=== PATIENT | male | born 1960 | race American Indian/Alaskan Native ===

== ENCOUNTER 2019-01-12 23:06 | Observation (INO) | payer MEDICAID ==
[2019-01-12 23:52] LABS: Eosinophils # (Auto) 0.2 K/mm3 (0.0-0.4); Eosinophils % (Auto) 3.1 % (0.0-4.3); Monocytes # (Auto) 0.8 K/mm3 (0.0-0.8); Monocytes % (Auto) 14.3 % (0.0-7.3)
--- NOTE | 2019-01-12 23:59 | XRay Report ---
PROCEDURE: XR CHEST ROUTINE 2V TECHNIQUE: PA and lateral chest radiographs were obtained. HISTORY: Chest Pain COMPARISONS: None. FINDINGS: Heart: Normal. Mediastinum/Vessels: Normal. Lungs/Pleural space: The lungs are expanded. There are no infiltrates, effusions or pneumothoraces.. Bony thorax: No acute osseous abnormality. There is hypertrophy of the left sternoclavicular joint. The IMPRESSION: There is no acute cardiopulmonary abnormality.. This document is electronically signed by Antoine Hunt MD., January 13 2019 12:57:01 AM ET
[2019-01-13 00:03] LABS: Basophils % (Auto) 0.5 % (0.0-1.8); Hematocrit 41.4 % (35.5-45.6); Lymphocytes # (Auto) 1.8 K/mm3 (1.2-5.4); Lymphocytes % (Auto) 32.9 % (13.4-35.0); Mean Corpuscular HGB Conc 34 % (32-34); Mean Corpuscular Volume 91 fl (84-94); Red Blood Count 4.53 M/mm3 (3.65-5.03); Red Cell Distribution Width 14.1 % (13.2-15.2)
[2019-01-13 00:13] LABS: BUN/Creatinine Ratio 15; Blood Urea Nitrogen 17 mg/dL (9-20); Calcium 8.7 mg/dL (8.4-10.2)
[2019-01-13 00:14] LABS: Hemolysis Index 4
[2019-01-13] MEDS ORDERED: ASPIRIN PO ONE (01:31)
--- NOTE | 2019-01-13 01:58 | Emergency Department Report ---
ED Chest Pain HPI - General Chief Complaint: Chest Pain Stated Complaint: CHEST PAINS Time Seen by Provider: 01/13/19 01:18 Source: patient, old records reviewed (no previous med record for review) Mode of arrival: Ambulatory Limitations: No Limitations - History of Present Illness Initial Comments: 58-year-old male with a past medical history of hypertension presents to Hospital complaining of left-sided chest pain 1 day and dry cough 2 days. Patient complains of intermittent left-sided chest pain described as a pressure. No aggravating or alleviating factors reported. Patient denies associated symptoms including fever, nausea, vomiting, shortness breath, diaphoresis, calf tenderness, leg edema. He denies previous travel, history of PE, history of DVT, family history of CAD, or smoking. He states his last stress test was greater than 5 years ago. He has been compliant with his blood pressure medication and does not take an aspirin daily. He is currently homeless. He also complains of soreness to his feet. Severity scale (0 -10): 0 - Related Data Allergies Allergy/AdvReac Type Severity Reaction Status Date / Time No Known Allergies Allergy Verified 01/12/19 23:10 Heart Score - HEART Score History: Slightly suspicious EKG: Non-specific Age: 45-65 Risk factors: 1-2 risk factors Troponin: < normal limit HEART Score: 3 ED Review of Systems ROS: Stated complaint: CHEST PAINS Other details as noted in HPI Comment: All other systems reviewed and negative ED Past Medical Hx - Past Medical History Previous Medical History?: Yes Hx Hypertension: Yes - Surgical History Past Surgical History?: No - Social History Smoking Status: Never Smoker Substance Use Type: None ED Physical Exam - General Limitations: No Limitations - Other Other exam information: General: No limitations, patient is alert in no acute distress Head exam: Atraumatic, normocephalic Eyes exam: Normal appearance ENT: Moist mucous membrane, Neck exam: Normal inspection, full range of motion, no meningismus nontender Respiratory exam: Clear to auscultation bilateral, no wheezes, rales, crackles Cardiovascular: Normal rate and rhythm, normal heart sounds, chest wall nontender Abdomen: Soft, nondistended, and nontender, with normal bowel sounds, no rebound, or guarding Extremity: Full range of motion normal inspection no deformity Back: Normal Inspection, full range of motion, no tenderness Neurologic: Alert, oriented x3, cranial nerves intact, no motor or sensory deficit Psychiatric: normal affect, normal mood Skin: Patient has a tinea/fungal infection noted between the toes of his bilateral feet. No ulcers, erythema, or want. ED Course Vital Signs 01/12/19 01/12/19 01/13/19 23:11 23:13 01:06 Temperature 97.4 F L 97.4 F L Pulse Rate 68 70 63 Respiratory 18 18 20 Rate Blood Pressure 165/111 Blood Pressure 165/111 [Left] O2 Sat by Pulse 97 98 98 Oximetry 01/13/19 01/13/19 01/13/19 01:09 01:16 01:30 Temperature 97.7 F Pulse Rate 64 80 Respiratory 20 26 H Rate Blood Pressure 156/101 156/101 Blood Pressure 156/101 [Left] O2 Sat by Pulse 97 98 98 Oximetry 01/13/19 01/13/19 01/13/19 01:46 02:01 02:15 Temperature Pulse Rate 55 L 54 L 56 L Respiratory 17 14 16 Rate Blood Pressure 148/99 143/92 148/99 Blood Pressure [Left] O2 Sat by Pulse 98 96 95 Oximetry 01/13/19 02:31 Temperature Pulse Rate 54 L Respiratory 12 Rate Blood Pressure 148/99 Blood Pressure [Left] O2 Sat by Pulse 99 Oximetry ZHANNA score - Zhanna Score Age > 65: (0) No Aspirin use within the Past 7 Days: (0) No 3 or more CAD Risk Factors: (0) No 2 or more Angina events in past 24 hrs: (1) Yes Known CAD with more than 50% Stenosis: (0) No Elevated Cardiac Markers: (0) No ST Deviation Greater than 0.5mm: (0) No ZHANNA Score: 1 ED Medical Decision Making - Lab Data Result diagrams: 01/12/19 23:18 01/12/19 23:18 Lab Results 01/12/19 01/12/19 Range/Units 23:18 23:18 WBC 5.5 (4.5-11.0) K/mm3 RBC 4.53 (3.65-5.03) M/mm3 Hgb 14.0 (11.8-15.2) gm/dl Hct 41.4 (35.5-45.6) % MCV 91 (84-94) fl MCH 31 (28-32) pg MCHC 34 (32-34) % RDW 14.1 (13.2-15.2) % Lymph % (Auto) 32.9 (13.4-35.0) % [place] % (Auto) 14.3 H (0.0-7.3) % Eos % (Auto) 3.1 (0.0-4.3) % Baso % (Auto) 0.5 (0.0-1.8) % Lymph # 1.8 (1.2-5.4) K/mm3 [place] # 0.8 (0.0-0.8) K/mm3 Eos # 0.2 (0.0-0.4) K/mm3 Baso # 0.0 (0.0-0.1) K/mm3 Seg Neutrophils % 49.5 (40.0-70.0) % Seg Neutrophils # 2.7 (1.8-7.7) K/mm3 Sodium 145 (137-145) mmol/L Potassium 3.7 (3.6-5.0) mmol/L Chloride 106.0 (98-107) mmol/L Carbon Dioxide 28 (22-30) mmol/L Anion Gap 15 mmol/L BUN 17 (9-20) mg/dL Creatinine 1.1 (0.8-1.5) mg/dL Estimated GFR > 60 ml/min BUN/Creatinine Ratio 15 % Glucose 80 (75-100) mg/dL Calcium 8.7 (8.4-10.2) mg/dL Troponin T 0.013 (0.00-0.029) ng/mL Platelet count pending - EKG Data -: EKG Interpreted by [place] EKG shows normal: sinus rhythm - Radiology Data Radiology results: report reviewed PROCEDURE: XR CHEST ROUTINE 2V TECHNIQUE: PA and lateral chest radiographs were obtained. HISTORY: Chest Pain COMPARISONS: None. FINDINGS: Heart: Normal. Mediastinum/Vessels: Normal. Lungs/Pleural space: The lungs are expanded. There are no infiltrates, effusions or pneumothoraces.. Bony thorax: No acute osseous abnormality. There is hypertrophy of the left sternoclavicular joint. The IMPRESSION: There is no acute cardiopulmonary abnormality.. - Medical Decision Making cp, no stemi, initial trop neg. No signs of ST elevation NE. Patient will be admitted for further cardiac workup. plt count 68 - Differential Diagnosis NE, atypical chest pain, PE, costochondritis, pneumonia Critical Care Time: No Critical care attestation.: If time is entered above; I have spent that time in minutes in the direct care of this critically ill patient, excluding procedure time. ED Disposition Clinical Impression: Chest pain, HTN (hypertension), Athletes foot, Thrombocytopenia Disposition: OP ADMIT IP TO THIS HOSP Is pt being admited?: Yes Does the pt Need Aspirin: Yes Condition: Stable Time of Disposition: 01:56 (Dr. Olivre/hospitalist)
[2019-01-13] MEDS ORDERED: NITROSTAT SL PRN (02:40)
[2019-01-13] MEDS ORDERED: SODIUM CHLORIDE FLUSH SYRINGE 10 ML IV PRN ×2 (02:40)
[2019-01-13] MEDS ORDERED: TYLENOL PO PRN (02:40)
[2019-01-13] MEDS ORDERED: MORPHINE IV PRN ×2 (02:40→05:28)
[2019-01-13] MEDS ORDERED: ZOFRAN IV PRN (02:40)
--- NOTE | 2019-01-13 02:40 | History and Physical Report ---
<DIANE VALENCIA - Last Filed: 01/13/19 04:06> History of Present Illness Date of examination: 01/13/19 Date of admission: 09/19/2018 Chief complaint: Chest pain x1 day History of present illness: Pt is a 58-year-old male with a PMHx of hypertension (takes amlodipine) who presents to ER with complaining of chest pain 1 day. Patient states that the pain is an intermittent pressure-like, located in the left substernal area with no radiation. Pt reports a non-productive cough for the past 2 days but denies SOB, denies pain in the chest wall with palpation, denies palpitation, denies pain with coughing, denies diaphoresis, denies nausea, denies vomiting. Pt states that he had similar chest pain and was seen in the ER for similar chest pain, his last stress test was 5 year ago. Pt states that he is homeless, he has been out of amlodipine for a while. In the ER, pt had an abnormal EKG with multiple PVCs, nonspecific T abnormalities and prolonged QT interval showed, no STEMI, first CE is negative, patient is admitted for further evaluation of this chest pain. Past History Past Medical History: hypertension Social history: other (drink alcohol occasional) Family history: no significant family history Medications and Allergies Allergies Allergy/AdvReac Type Severity Reaction Status Date / Time No Known Allergies Allergy Verified 01/12/19 23:10 Home Medications Medication Instructions Recorded Confirmed Last Taken Type amLODIPine [Norvasc] 10 mg PO DAILY 01/13/19 01/13/19 Unknown History Active Meds: Active Medications Clotrimazole (Lotrimin) 1 applic TP BID [facility] Review of Systems Cardiovascular: chest pain Respiratory: cough Musculoskeletal: other (lower extremities edema) Exam - Constitutional Vitals: Temp Pulse Resp BP Pulse Ox 97.7 F 54 L 12 148/99 99 01/13/19 01:09 01/13/19 02:31 01/13/19 02:31 01/13/19 02:31 01/13/19 02:31 General appearance: Present: no acute distress - EENT Eyes: Present: EOM intact ENT: hearing intact - Neck Neck: Present: supple - Respiratory Respiratory effort: normal Respiratory: bilateral: CTA - Cardiovascular Rhythm: regular - Extremities Extremities: no ischemia Extremity abnormal: edema (bilateral lower extremities) Peripheral Pulses: within normal limits - Abdominal General gastrointestinal: Present: non-tender, non-distended Male genitourinary: Present: deferred - Rectal Rectal Exam: deferred - Integumentary Integumentary: Present: warm, dry - Musculoskeletal Musculoskeletal: strength equal bilaterally - Psychiatric Psychiatric: cooperative - Neurologic Neurologic: moves all extremities Results - Labs CBC & Chem 7: 01/13/19 02:56 01/12/19 23:18 Labs: Laboratory Last Values WBC 5.5 K/mm3 (4.5-11.0) 01/12/19 23:18 RBC 4.53 M/mm3 (3.65-5.03) 01/12/19 23:18 Hgb 14.0 gm/dl (11.8-15.2) 01/12/19 23:18 Hct 41.4 % (35.5-45.6) 01/12/19 23:18 MCV 91 fl (84-94) 01/12/19 23:18 MCH 31 pg (28-32) 01/12/19 23:18 MCHC 34 % (32-34) 01/12/19 23:18 RDW 14.1 % (13.2-15.2) 01/12/19 23:18 Lymph % (Auto) 32.9 % (13.4-35.0) 01/12/19 23:18 [place] % (Auto) 14.3 % (0.0-7.3) H 01/12/19 23:18 Eos % (Auto) 3.1 % (0.0-4.3) 01/12/19 23:18 Baso % (Auto) 0.5 % (0.0-1.8) 01/12/19 23:18 Lymph # 1.8 K/mm3 (1.2-5.4) 01/12/19 23:18 [place] # 0.8 K/mm3 (0.0-0.8) 01/12/19 23:18 Eos # 0.2 K/mm3 (0.0-0.4) 01/12/19 23:18 Baso # 0.0 K/mm3 (0.0-0.1) 01/12/19 23:18 Seg Neutrophils % 49.5 % (40.0-70.0) 01/12/19 23:18 Seg Neutrophils # 2.7 K/mm3 (1.8-7.7) 01/12/19 23:18 Sodium 145 mmol/L (137-145) 01/12/19 23:18 Potassium 3.7 mmol/L (3.6-5.0) 01/12/19 23:18 Chloride 106.0 mmol/L (98-107) 01/12/19 23:18 Carbon Dioxide 28 mmol/L (22-30) 01/12/19 23:18 15 mmol/L 01/12/19 23:18 BUN 17 mg/dL (9-20) 01/12/19 23:18 1.1 mg/dL (0.8-1.5) 01/12/19 23:18 Estimated GFR > 60 ml/min 01/12/19 23:18 15 % 01/12/19 23:18 Glucose 80 mg/dL (75-100) 01/12/19 23:18 Calcium 8.7 mg/dL (8.4-10.2) 01/12/19 23:18 0.013 ng/mL (0.00-0.029) 01/12/19 23:18 Assessment and Plan Assessment and plan: 1. Chest pain (rule/out ACS) 2. Hypertension 3. Chronic lower extremity swelling Plan: Patient is admitted for chest pain Cardiac enzymes every 6 hours 2 more If CE elevated, consult cardiology Monitor blood pressure Stress test in the a.m. Cardiac diet Resume home meds Add Aspirin 325 PO daily, Metoprolol 25 PO BID Advance Directives: Yes VTE prophylaxis?: Chemical Plan of care discussed with patient/family: Yes <SHENG MERRITT - Last Filed: 01/13/19 05:29> History of Present Illness Date of admission: 01/13/19 03:01 Medications and Allergies Active Meds: Active Medications Acetaminophen (Tylenol) 650 mg PO Q4H PRN PRN Reason: Pain MILD(1-3)/Fever >100.5/CHACON Amlodipine Besylate (Norvasc) 5 mg PO QDAY STEVEN Aspirin (Ecotrin) 325 mg PO QDAY STEVEN Clotrimazole (Lotrimin) 1 applic TP BID STEVEN Hydralazine HCl (Apresoline) 20 mg IV Q4H PRN PRN Reason: Hypertension Metoprolol Tartrate (Lopressor) 25 mg PO BID STEVEN Morphine Sulfate (Morphine) 2 mg IV Q4H PRN PRN Reason: Chest Pain unrelieved by NTG Nitroglycerin (Nitrostat) 0.4 mg SL Q5M PRN PRN Reason: Chest Pain Ondansetron HCl (Zofran) 4 mg IV Q8H PRN PRN Reason: Nausea And Vomiting Sodium Chloride (Sodium Chloride Flush Syringe 10 Ml) 10 ml IV BID STEVEN Sodium Chloride (Sodium Chloride Flush Syringe 10 Ml) 10 ml IV PRN PRN PRN Reason: LINE FLUSH Sodium Chloride (Sodium Chloride Flush Syringe 10 Ml) 10 ml IV PRN PRN PRN Reason: LINE FLUSH Exam - Constitutional Vitals: Temp Pulse Resp BP Pulse Ox 97.6 F 66 18 163/103 99 01/13/19 04:37 01/13/19 04:37 01/13/19 04:37 01/13/19 04:37 01/13/19 02:31 Results - Labs CBC & Chem 7: 01/13/19 02:56 01/13/19 02:56 Labs: Laboratory Last Values WBC 5.2 K/mm3 (4.5-11.0) 01/13/19 02:56 RBC 4.67 M/mm3 (3.65-5.03) 01/13/19 02:56 Hgb 14.4 gm/dl (11.8-15.2) 01/13/19 02:56 Hct 43.9 % (35.5-45.6) 01/13/19 02:56 MCV 94 fl (84-94) 01/13/19 02:56 MCH 31 pg (28-32) 01/13/19 02:56 MCHC 33 % (32-34) 01/13/19 02:56 RDW 14.5 % (13.2-15.2) 01/13/19 02:56 Plt Count 68 K/mm3 (140-440) L 01/13/19 02:56 Lymph % (Auto) [place] 01/13/19 02:56 [place] % (Auto) Tentmaker 01/13/19 02:56 Eos % (Auto) [place]entmaker 01/13/19 02:56 Baso % (Auto) Tentmaker 01/13/19 02:56 Lymph # Tentmaker 01/13/19 02:56 [place] # Tentmaker 01/13/19 02:56 Eos # Tentmaker 01/13/19 02:56 Baso # Tentmaker 01/13/19 02:56 Seg Neutrophils % Tentmaker 01/13/19 02:56 Seg Neutrophils # Tentmaker 01/13/19 02:56 Sodium 139 mmol/L (137-145) 01/13/19 02:56 Potassium 4.0 mmol/L (3.6-5.0) 01/13/19 02:56 Chloride 106.5 mmol/L (98-107) 01/13/19 02:56 Carbon Dioxide 24 mmol/L (22-30) 01/13/19 02:56 13 mmol/L 01/13/19 02:56 BUN 17 mg/dL (9-20) 01/13/19 02:56 0.7 mg/dL (0.8-1.5) L 01/13/19 02:56 Estimated GFR > 60 ml/min 01/13/19 02:56 24 % 01/13/19 02:56 Glucose 100 mg/dL (75-100) 01/13/19 02:56 Calcium 8.6 mg/dL (8.4-10.2) 01/13/19 02:56 0.013 ng/mL (0.00-0.029) 01/12/19 23:18 Triglycerides 79 mg/dL (2-149) 01/13/19 02:56 Cholesterol 151 mg/dL (50-199) 01/13/19 02:56 99 mg/dL (50-130) 01/13/19 02:56 47 mg/dL (40-59) 01/13/19 02:56 3.21 % 01/13/19 02:56 Assessment and Plan Assessment and plan: Patient seen and examined, case discussed with nurse practitioner. 58-year-old male with a history of hypertension comes emergency room with complaints of chest pain, left chest which she describes a pressure-like sensation, intermittent every 5 minutes. Physical exam is benign,agree with stress test
[2019-01-13 03:04] LABS: Platelet Count 68 K/mm3 (140-440)
[2019-01-13 03:25] LABS: Hematocrit 43.9 % (35.5-45.6); Hemoglobin 14.4 gm/dl (11.8-15.2); Mean Corpuscular HGB Conc 33 % (32-34); Mean Corpuscular Volume 94 fl (84-94); Red Blood Count 4.67 M/mm3 (3.65-5.03); Red Cell Distribution Width 14.5 % (13.2-15.2)
[2019-01-13 04:13] LABS: Platelet Count 68 K/mm3 (140-440)
[2019-01-13 04:15] LABS: BUN/Creatinine Ratio 24; Blood Urea Nitrogen 17 mg/dL (9-20); Calcium 8.6 mg/dL (8.4-10.2); Hemolysis Index 42
[2019-01-13] MEDS ORDERED: APRESOLINE IV PRN (04:55)
[2019-01-13 04:59] LABS: Chol/HDL Ratio 3.21 %
[2019-01-13] MEDS: SODIUM CHLORIDE FLUSH SYRINGE 10 ML IV SCH (09:43)
[2019-01-13] MEDS: LOPRESSOR PO SCH ×2 (09:43→22:14)
[2019-01-13] MEDS: LOTRIMIN TP SCH ×2 (09:45→22:19)
[2019-01-13] MEDS ORDERED: NORVASC PO SCH (10:00)
--- NOTE | 2019-01-13 10:50 | Progress Note ---
Assessment and Plan Assessment and plan: Chest pain. Continue chest pain pathway. Patient is scheduled for stress thallium in a.m. Continue to monitor serial isoenzymes. Hypertension. Resume antihypertensive medications. Medical noncompliance. Patient will be counseled. Chronic lower extremity swelling. Check lower extremity Dopplers. Homelessness. Case management evaluation in the morning. History Interval history: Pt is a 58-year-old male with a PMHx of hypertension (takes amlodipine) who presents to ER with complaining of chest pain 1 day [employer]. In the ER, pt had an abnormal EKG with multiple PVCs, nonspecific T abnormalities and prolonged QT interval, no STEMI, CE were negative, patient was admitted for further evaluation of this chest pain. Hospitalist Physical - Constitutional Vitals: Temp Pulse Resp BP Pulse Ox 98.1 F 82 16 182/115 96 01/13/19 08:27 01/13/19 08:27 01/13/19 08:27 01/13/19 08:27 01/13/19 08:27 General appearance: Present: no acute distress - EENT Eyes: Present: PERRL, EOM intact ENT: hearing intact, clear oral mucosa, dentition normal - Neck Neck: Present: supple, normal ROM - Respiratory Respiratory effort: normal Respiratory: bilateral: CTA - Cardiovascular Rhythm: regular Heart Sounds: Present: S1 & S2. Absent: gallop, rub - Extremities Extremities: no ischemia, No edema, Full ROM - Abdominal General gastrointestinal: soft, non-tender, non-distended, normal bowel sounds - Integumentary Integumentary: Present: clear, warm, dry - Neurologic Neurologic: CNII-XII intact, moves all extremities Results - Labs CBC & Chem 7: 01/13/19 02:56 01/13/19 02:56 Labs: Laboratory Last Values WBC 5.2 K/mm3 (4.5-11.0) 01/13/19 02:56 RBC 4.67 M/mm3 (3.65-5.03) 01/13/19 02:56 Hgb 14.4 gm/dl (11.8-15.2) 01/13/19 02:56 Hct 43.9 % (35.5-45.6) 01/13/19 02:56 MCV 94 fl (84-94) 01/13/19 02:56 MCH 31 pg (28-32) 01/13/19 02:56 MCHC 33 % (32-34) 01/13/19 02:56 RDW 14.5 % (13.2-15.2) 01/13/19 02:56 Plt Count 68 K/mm3 (140-440) L 01/13/19 02:56 Lymph % (Auto) Mud Mixer 01/13/19 02:56 [place] % (Auto) Mud Mixer 01/13/19 02:56 Eos % (Auto) Mud Mixer 01/13/19 02:56 Baso % (Auto) Mud Mixer 01/13/19 02:56 Lymph # Mud Mixer 01/13/19 02:56 [place] # Mud Mixer 01/13/19 02:56 Eos # Mud Mixer 01/13/19 02:56 Baso # Mud Mixer 01/13/19 02:56 Seg Neutrophils % Mud Mixer 01/13/19 02:56 Seg Neutrophils # Mud Mixer 01/13/19 02:56 Sodium 139 mmol/L (137-145) 01/13/19 02:56 Potassium 4.0 mmol/L (3.6-5.0) 01/13/19 02:56 Chloride 106.5 mmol/L (98-107) 01/13/19 02:56 Carbon Dioxide 24 mmol/L (22-30) 01/13/19 02:56 13 mmol/L 01/13/19 02:56 BUN 17 mg/dL (9-20) 01/13/19 02:56 0.7 mg/dL (0.8-1.5) L 01/13/19 02:56 Estimated GFR > 60 ml/min 01/13/19 02:56 24 % 01/13/19 02:56 Glucose 100 mg/dL (75-100) 01/13/19 02:56 Calcium 8.6 mg/dL (8.4-10.2) 01/13/19 02:56 0.013 ng/mL (0.00-0.029) 01/12/19 23:18 Triglycerides 79 mg/dL (2-149) 01/13/19 02:56 Cholesterol 151 mg/dL (50-199) 01/13/19 02:56 99 mg/dL (50-130) 01/13/19 02:56 47 mg/dL (40-59) 01/13/19 02:56 3.21 % 01/13/19 02:56 Active Medications - Current Medications Current Medications: Generic Name Dose Route Start Last Admin Trade Name Freq PRN Reason Stop Dose Admin Acetaminophen 650 mg 01/13/19 02:40 Tylenol PO Q4H PRN Pain MILD(1-3)/Fever >100.5/CHACON Amlodipine Besylate 5 mg 01/13/19 10:00 01/13/19 09:43 Norvasc PO 5 mg QDAY STEVEN Administration Aspirin 325 mg 01/14/19 10:00 Ecotrin PO QDAY STEVEN Clotrimazole 1 applic 01/13/19 10:00 01/13/19 09:45 Lotrimin TP 1 applic BID STEVEN Administration Hydralazine HCl 20 mg 01/13/19 04:55 01/13/19 05:48 Apresoline IV 20 mg Q4H PRN Administration Hypertension Metoprolol Tartrate 25 mg 01/13/19 10:00 01/13/19 09:43 Lopressor PO 25 mg BID STEVEN Administration Morphine Sulfate 2 mg 01/13/19 05:28 Morphine IV Q4H PRN Chest Pain unrelieved by NTG Nitroglycerin 0.4 mg 01/13/19 02:40 Nitrostat SL Q5M PRN Chest Pain Ondansetron HCl 4 mg 01/13/19 02:40 Zofran IV Q8H PRN Nausea And Vomiting Sodium Chloride 10 ml 01/13/19 10:00 01/13/19 09:43 Sodium Chloride Flush Syringe 10 Ml IV 10 ml BID STEVEN Administration Sodium Chloride 10 ml 01/13/19 02:40 Sodium Chloride Flush Syringe 10 Ml IV PRN PRN LINE FLUSH
--- NOTE | 2019-01-13 13:46 | Vascular Lab Report ---
PROCEDURE: VL VENOUS DUPLEX LE BILAT TECHNIQUE: Grayscale and color and spectral doppler ultrasound imaging of the extremity venous syste m was performed. HISTORY: swelling COMPARISONS: None. FINDINGS: There is normal compression and color flow within the bilateral lower extremity venous systems. Mulu l augmentation was seen. Focal soft tissue edema is seen adjacent to the knees. IMPRESSION: No evidence of deep venous thrombosis. This document is electronically signed by Silva Horne., January 13 2019 02:44:16 PM ET
[2019-01-14] MEDS: SODIUM CHLORIDE FLUSH SYRINGE 10 ML IV SCH (01:19)
[2019-01-14 08:38] VITALS: BP 168/96
[2019-01-14] MEDS ORDERED: ECOTRIN PO SCH (10:00)
--- NOTE | 2019-01-14 10:02 | Discharge Summary ---
Providers - Providers Date of Admission: 01/13/19 03:01 Date of discharge: 01/14/19 Attending physician: VON LAWRENCE 01/13/19 Consult to Cardiac Rehabilitation [CONS] Routine Reason For Exam: Phase I 01/14/19 07:34 Consult to Physician [CONS] Routine Comment: Consulting Provider: RASHID COSME Physician Instructions: Reason For Exam: cp Primary care physician: TILE MOLDER Hospitalization Reason for admission: cp Condition: Stable Hospital course: Pt is a 58-year-old male with a PMHx of hypertension (takes amlodipine) who presents to ER with complaining of chest pain 1 day [employer]. In the ER, pt had an abnormal EKG with multiple PVCs, nonspecific T abnormalities and prolonged QT interval, no STEMI, CE were negative, patient was admitted for further evaluation of this chest pain. The patient was to undergo a stress test but refused the examination. Cardiology was consulted. However, patient signed out AMA. Dedicated discharge time 32 minutes. Disposition: DC-07 LEFT AGAINST MED ADVICE Time spent for discharge: 32 - Discharge Diagnoses (1) Chest pain Status: Acute Core Measure Documentation - Palliative Care Palliative Care/ Comfort Measures: Not Applicable - Core Measures Any of the following diagnoses?: none Exam - Constitutional Vitals: Temp Pulse Resp BP Pulse Ox 98.1 F 58 L 18 168/96 93 01/14/19 08:15 01/14/19 08:15 01/14/19 08:15 01/14/19 08:15 01/14/19 08:15 Plan Follow up with: SARA LYONS MD [Primary Care Provider] - 7 Days
== END 2019-01-14 09:43 | disposition left against medical advice (07) ==
LOC: ED 23:06 → 4A 01-13 03:01
PROVIDERS: ADMIT Internal Medicine; ATTEND Hospitalist
DX: R07.89 Other chest pain (principal); I10 Essential (primary) hypertension; M79.89 Other specified soft tissue disorders; Z79.899 Other long term (current) drug therapy; Z79.82 Long term (current) use of aspirin
CPT/HCPCS: 36415; 71046; 80048; 80061; 84484; 85025; 93005; 93010; 93970; 96374; 99284; G0378; J0360

== ENCOUNTER 2019-02-02 22:32 | Inpatient (IN) | payer MEDICAID ==
[2019-02-02 23:06] LABS: Hematocrit 42.1 % (35.5-45.6); Hemoglobin 14.2 gm/dl (11.8-15.2); Mean Corpuscular HGB Conc 34 % (32-34); Mean Corpuscular Volume 92 fl (84-94); Red Cell Distribution Width 14.2 % (13.2-15.2)
[2019-02-02 23:29] LABS: BUN/Creatinine Ratio 18; Blood Urea Nitrogen 16 mg/dL (9-20); Hemolysis Index 4
--- NOTE | 2019-02-02 23:44 | XRay Report ---
PROCEDURE: XR CHEST 1V AP TECHNIQUE: Chest radiograph single view. HISTORY: Chest Pain COMPARISONS: None . FINDINGS: Heart: Normal. Mediastinum/Vessels: Normal. Lungs/Pleural space: Normal. Bony thorax: No acute osseous abnormality. Life support devices: None. IMPRESSION: No acute cardiopulmonary abnormality. This document is electronically signed by Macrina Cortez DO., February 02 2019 11:43:10 PM ET
--- NOTE | 2019-02-02 23:51 | Emergency Department Report ---
ED Chest Pain HPI - General Chief Complaint: Chest Pain Stated Complaint: CP/HAND NUMBNESS/FOOT SORES Time Seen by Provider: 02/02/19 23:32 Source: patient Mode of arrival: Ambulatory Limitations: No Limitations - History of Present Illness Initial Comments: 59-year-old male reports history of hypertension, presents to ED with complaint of chest pain prior to arrival. Patient states he was riding on a chain when he experienced left-sided chest pain, pressure-like, that lasted for a few minutes. Patient states he is currently pain free. Denies shortness of breath, diaphoresis, nausea, vomiting, leg pain. Patient reports chronic swelling to bilateral lower legs that is unchanged. MD Complaint: chest pain -: This evening Onset: during rest Pain Location: left chest Pain Radiation: none Severity: moderate Quality: pressure Consistency: now resolved Improves With: nothing Worsens With: nothing re: denies: nausea, vomting, diaphoresis, dyspnea Other Symptoms: leg swelling Treatments Prior to Arrival: none - Related Data Home Medications Medication Instructions Recorded Confirmed Last Taken amLODIPine [Norvasc] 10 mg PO DAILY 01/13/19 02/03/19 Unknown Allergies Allergy/AdvReac Type Severity Reaction Status Date / Time No Known Allergies Allergy Verified 01/12/19 23:10 Heart Score - HEART Score History: Slightly suspicious EKG: Non-specific Age: 45-65 Risk factors: 1-2 risk factors Troponin: < normal limit HEART Score: 3 ED Review of Systems ROS: Stated complaint: CP/HAND NUMBNESS/FOOT SORES Other details as noted in HPI Comment: All other systems reviewed and negative Constitutional: denies: chills, fever Respiratory: denies: shortness of breath Cardiovascular: chest pain Gastrointestinal: denies: nausea, vomiting ED Past Medical Hx - Past Medical History Previous Medical History?: Yes Hx Hypertension: Yes Hx Congestive Heart Failure: No Hx Diabetes: No Hx Arthritis: Yes Hx Asthma: No Hx COPD: No - Surgical History Past Surgical History?: No - Social History Smoking Status: Former Smoker Substance Use Type: Alcohol - Medications Home Medications: Home Medications Medication Instructions Recorded Confirmed Last Taken Type amLODIPine [Norvasc] 10 mg PO DAILY 01/13/19 02/03/19 Unknown History ED Physical Exam - General Limitations: No Limitations General appearance: alert, in no apparent distress - Head Head exam: Present: atraumatic, normocephalic - Eye Eye exam: Present: normal appearance - ENT ENT exam: Present: mucous membranes moist - Neck Neck exam: Present: normal inspection - Respiratory Respiratory exam: Present: normal lung sounds bilaterally. Absent: respiratory distress - Cardiovascular Cardiovascular Exam: Present: regular rate, normal rhythm - GI/Abdominal GI/Abdominal exam: Present: soft. Absent: distended, tenderness - Extremities Exam Extremities exam: Present: normal inspection, other (pitting edema BLE). Absent: calf tenderness - Neurological Exam Neurological exam: Present: alert, oriented X3 - Psychiatric Psychiatric exam: Present: normal affect, normal mood - Skin Skin exam: Present: warm, dry, intact, normal color. Absent: rash ED Course Vital Signs 02/02/19 02/02/19 02/03/19 22:39 23:47 00:24 Temperature 97.4 F L Pulse Rate 36 L 54 L 53 L Respiratory 18 15 14 Rate Blood Pressure 159/74 Blood Pressure 128/75 126/55 [Right] O2 Sat by Pulse 95 97 95 Oximetry 02/03/19 03:43 Temperature Pulse Rate 56 L Respiratory 18 Rate Blood Pressure Blood Pressure 115/63 [Right] O2 Sat by Pulse 97 Oximetry ZHANNA score - Zhanna Score Age > 65: (0) No Aspirin use within the Past 7 Days: (0) No 3 or more CAD Risk Factors: (0) No 2 or more Angina events in past 24 hrs: (1) Yes Known CAD with more than 50% Stenosis: (0) No Elevated Cardiac Markers: (0) No ST Deviation Greater than 0.5mm: (0) No ZHANNA Score: 1 ED Medical Decision Making - Lab Data Result diagrams: 02/02/19 22:52 02/02/19 22:52 - EKG Data -: EKG Interpreted by [place] EKG shows normal: sinus rhythm - EKG Data Interpretation: other (inferior T wave inversions unchanged, new T wave inversions anetriorly; PACs present) - Radiology Data Radiology results: report reviewed, image reviewed - Medical Decision Making 59 yo M with chest pain, currently resolved. Seen earlier in the month, but left AMA and did not have stress test. Pt has new anterior T wave inversion. Troponin normal. Vitals signs normal. CXR normal. Pt states he is willing to stay this time and will not leave AMA. Will admit to hospitalist to further workup. - Differential Diagnosis ACS, CHF, pneumonia Critical care attestation.: If time is entered above; I have spent that time in minutes in the direct care of this critically ill patient, excluding procedure time. ED Disposition Clinical Impression: Chest pain Disposition: DC-09 OP ADMIT IP TO THIS HOSP Is pt being admited?: Yes Condition: Stable
[2019-02-03] MEDS ORDERED: ASPIRIN PO ONE (00:06)
[2019-02-03] MEDS ORDERED: ZOFRAN IV PRN (00:23)
[2019-02-03] MEDS ORDERED: PERCOCET 5/325 PO PRN (00:23)
[2019-02-03] MEDS ORDERED: TYLENOL PO PRN (00:23)
[2019-02-03] MEDS ORDERED: SODIUM CHLORIDE FLUSH SYRINGE 10 ML IV PRN (00:23)
[2019-02-03] MEDS ORDERED: MORPHINE IV PRN (00:30)
[2019-02-03 00:53] LABS: Anisocytosis 1+; Band Neutrophils # (Manual) 0.1 K/mm3; Basophils % (Manual) 0 % (0.0-1.8); Total Cells Counted 100
[2019-02-03 00:54] LABS: Platelet Count 112 K/mm3 (140-440); Platelet Estimate Consistent w Auto
--- NOTE | 2019-02-03 00:54 | History and Physical Report ---
History of Present Illness Date of examination: 02/03/19 Chief complaint: Chest pain History of present illness: Patient is a 59-year-old -Serbian male with history of hypertension who presented to the ED on account of left-sided chest pain which started 30 minutes prior to arrival. He described it as sharp in character, rated 3/10, non- radiating and constant in duration. No known aggravating or relieving factors. He has associated diaphoresis and lightheadedness. He denies shortness of breath, palpitation, fever, chills, cough, headaches, nausea, vomiting, syncope or loss of consciousness. He has positive bilateral leg swelling but no orthopnea or PND. Of note, patient stated that he is from [place], [place] and that he is currently homeless, but receives SSI. Past History Past Medical History: arthritis, hypertension Past Surgical History: No surgical history Social history: other (patient is an ex-cigarette smoker. He smoked for 10 years but quit 12 years ago. He admits to moderate alcohol use. He denies illicit drug use.) Family history: hypertension (mother and sisters.), other (no known family history of heart attack.) Medications and Allergies Allergies Allergy/AdvReac Type Severity Reaction Status Date / Time No Known Allergies Allergy Verified 01/12/19 23:10 Home Medications Medication Instructions Recorded Confirmed Last Taken Type amLODIPine [Norvasc] 10 mg PO DAILY 01/13/19 01/13/19 Unknown History Active Meds: Active Medications Acetaminophen (Tylenol) 650 mg PO Q4H PRN PRN Reason: Pain MILD(1-3)/Fever >100.5/CHACON Enoxaparin Sodium (Lovenox) 40 mg SUB-Q QDAY STEVEN Famotidine (Pepcid) 20 mg PO BID [facility] Morphine Sulfate (Morphine) 2 mg IV Q4H PRN PRN Reason: Pain , Severe (7-10) Ondansetron HCl (Zofran) 4 mg IV Q8H PRN PRN Reason: Nausea And Vomiting Oxycodone/Acetaminophen (Percocet 5/325) 1 tab PO Q6H PRN PRN Reason: Pain, Moderate (4-6) Sodium Chloride (Sodium Chloride Flush Syringe 10 Ml) 10 ml IV BID STEVEN Sodium Chloride (Sodium Chloride Flush Syringe 10 Ml) 10 ml IV PRN PRN PRN Reason: LINE FLUSH Review of Systems All systems: negative (except as documented in the HPI, 14 point system reviewed were negative) Exam - Constitutional Vitals: Temp Pulse Resp BP Pulse Ox 97.4 F L 53 L 14 126/55 95 02/02/19 22:39 02/03/19 00:24 02/03/19 00:24 02/03/19 00:24 02/03/19 00:24 General appearance: Present: no acute distress, obese - EENT Eyes: Present: PERRL, EOM intact ENT: hearing intact, clear oral mucosa - Neck Neck: Present: supple, normal ROM - Respiratory Respiratory effort: normal Respiratory: bilateral: CTA - Cardiovascular Rhythm: regular Heart Sounds: Present: S1 & S2. Absent: rub, click - Extremities Extremities: pulses symmetrical Extremity abnormal: edema (in bilateral lower extremities) - Abdominal General gastrointestinal: Present: soft, non-tender, non-distended, normal bowel sounds Male genitourinary: Present: deferred - Integumentary Integumentary: Present: clear, warm, dry - Musculoskeletal Musculoskeletal: gait normal, strength equal bilaterally - Psychiatric Psychiatric: appropriate mood/affect, intact judgment & insight - Neurologic Neurologic: CNII-XII intact, moves all extremities Results - Labs CBC & Chem 7: 02/02/19 22:52 02/02/19 22:52 Labs: Laboratory Last Values WBC 5.3 K/mm3 (4.5-11.0) 02/02/19 22:52 RBC 4.60 M/mm3 (3.65-5.03) 02/02/19 22:52 Hgb 14.2 gm/dl (11.8-15.2) 02/02/19 22:52 Hct 42.1 % (35.5-45.6) 02/02/19 22:52 MCV 92 fl (84-94) 02/02/19 22:52 MCH 31 pg (28-32) 02/02/19 22:52 MCHC 34 % (32-34) 02/02/19 22:52 RDW 14.2 % (13.2-15.2) 02/02/19 22:52 [place] % (Auto) Tap Builder 02/02/19 22:52 Sodium 140 mmol/L (137-145) 02/02/19 22:52 Potassium 3.9 mmol/L (3.6-5.0) 02/02/19 22:52 Chloride 103.5 mmol/L (98-107) 02/02/19 22:52 Carbon Dioxide 24 mmol/L (22-30) 02/02/19 22:52 16 mmol/L 02/02/19 22:52 BUN 16 mg/dL (9-20) 02/02/19 22:52 0.9 mg/dL (0.8-1.5) 02/02/19 22:52 Estimated GFR > 60 ml/min 02/02/19 22:52 18 % 02/02/19 22:52 Glucose 102 mg/dL (75-100) H 02/02/19 22:52 Calcium 9.0 mg/dL (8.4-10.2) 02/02/19 22:52 < 0.010 ng/mL (0.00-0.029) 02/02/19 22:52 NT-Pro-B Natriuret Pep 339.2 pg/mL (0-900) 02/02/19 22:52 Assessment and Plan Assessment and plan: Chest pain, rule out ACS -On Chest pain pathway -Further evaluation with stress test in a.m. Bilateral leg swelling -Duplex ultrasound to assess for DVT Sinus bradycardia -Likely chronic per patient -We'll check TSH and free T4 levels Hypertension -Stable Homelessness -We'll consult case consultant DVT prophylaxis with Lovenox Disposition: Patient will be placed in observation status pending further evaluation and treatment Time spent: 38 minutes
--- NOTE | 2019-02-03 07:53 | Event Note ---
Date: 02/03/19 Patient admitted today for chest pain, pedal edema and sinus bradycardia. Remains stable Will continue with present management plan
--- NOTE | 2019-02-03 11:06 | Vascular Lab Report ---
PROCEDURE: VL VENOUS DUPLEX LE BILAT HISTORY: bilateral leg swelling FINDINGS: Real-time ultrasound of the right leg and left leg was performed using grayscale and color Doppler images. These images demonstrate no evidence of deep venous thrombus in the right and left common femoral vei n, superficial femoral vein, popliteal vein or posterior tibial vein. IMPRESSION: No DVT in either leg This document is electronically signed by Cleveland Rojas MD., February 03 2019 11:04:09 AM ET
[2019-02-03] MEDS: LOVENOX SUB-Q SCH (13:20)
[2019-02-03] MEDS: PEPCID PO SCH ×2 (13:21→22:37)
[2019-02-03] MEDS: HALFPRIN EC PO SCH (13:21)
[2019-02-03] MEDS: SODIUM CHLORIDE FLUSH SYRINGE 10 ML IV SCH (22:38)
[2019-02-04] MEDS ORDERED: LEXISCAN IV ONE ×2 (07:33→07:42)
--- NOTE | 2019-02-04 09:02 | Progress Note ---
Assessment and Plan Chest pain, rule out ACS Oxygen, nitroglycerin, aspirin, morphine -Further evaluation with stress test in a.m. Bilateral leg swelling -Duplex ultrasound showed no DVT Sinus bradycardia -Likely chronic per patient Normal TSH and free T4 levels Radiology consult Hypertension -Stable Homelessness -We'll consult correctional case records supervisor DVT prophylaxis with Lovenox Disposition: Patient will be placed in observation status pending further eval uation and treatment Time spent: 35 minutes Subjective Date of service: 02/04/19 Principal diagnosis: chest pain, hypertension, pedal edema. Interval history: Patient seen and examined. No fever. Has been improving. Objective - Exam Narrative Exam: Constitutional: Well-nourished well-developed. In no distress Head: Normocephalic atraumatic Eyes: Pupils are equal round and reactive to light Nose: No enlarged turbinates, no septal deviation. Mouth: Moist mucous membranes. Neck: Supple no thyromegaly. No bruit. No JVD Heart: Regular rate and rhythm, S1-S2 normal. No rubs murmurs or gallop Lungs: Clear to auscultation bilaterally. no rales or rhonchi Abdomen: Soft, nontender. Bowel sound are present. Extremities: Has edema, no cyanosis, no clubbing. Neuro: Alert oriented Oriented x3. No focal sensory or motor deficit. Skin: No rashes or hyperpigmented spots Musculoskeletal system: No joint pain or swelling Hematological: No petechia or subcutanous hemorrhages. Immunological: No multiple septic spots on the skin Lymphatic: No generalized lymphadenopathy Psychiatry: Euthymic. Calm. - Constitutional Vitals: Vital Signs - 12hr 02/03/19 02/03/19 02/04/19 22:00 23:00 00:44 Temperature Pulse Rate 52 L 50 L 50 L Respiratory 18 Rate Blood Pressure 122/80 O2 Sat by Pulse 92 Oximetry 02/04/19 02/04/19 02/04/19 00:45 04:01 04:02 Temperature 97.6 F 98.3 F Pulse Rate 51 L Respiratory 18 Rate Blood Pressure 136/85 O2 Sat by Pulse 98 Oximetry 02/04/19 02/04/19 07:34 07:59 Temperature 98.4 F Pulse Rate 78 38 L Respiratory 18 Rate Blood Pressure 171/81 O2 Sat by Pulse 96 Oximetry - Labs CBC & Chem 7: 02/02/19 22:52 02/02/19 22:52
[2019-02-04] MEDS ORDERED: NORVASC PO SCH (10:00)
[2019-02-04] MEDS ORDERED: ZESTRIL PO SCH (10:00)
[2019-02-04] MEDS: HALFPRIN EC PO SCH (12:01)
[2019-02-04] MEDS: PEPCID PO SCH ×2 (12:01→22:22)
[2019-02-04] MEDS: LOVENOX SUB-Q SCH (12:01)
[2019-02-04] MEDS: SODIUM CHLORIDE FLUSH SYRINGE 10 ML IV SCH ×3 (12:05→22:23)
--- NOTE | 2019-02-04 17:39 | Consultation ---
History of Present Illness Consult date: 02/04/19 Consult reason: chest pain, shortness of breath History of present illness: Patient is a 59-year-old man with a long history of hypertension. He lived in [place] until 3 months ago when he moved here, and states he has been chronic ally on amlodipine, but unable to articulate if he has had optimal blood pressure control over the past months to years. He denies any significant prior cardiac history. He presented to the hospital with shortness of breath, lower extremity edema, nonexertional chest pain. Blood pressure has been markedly elevated, with systolics 150s to 170s since his presentation. Work up in the hospital includes an EKG that showed sinus bradycardia with nonspecific ST and T-wave changes. Chest x-ray shows a normal cardiac silhouette, clear lungs, no evidence of interstitial edema or decompensated heart failure. Today, he underwent a Lexiscan thallium stress test ordered by the medical team. There was a dilated left ventricle with moderately severe left ventricular dysfunction, ejection fraction, occluded at 38% by gated SPECT. The stress perfusion images were unremarkable, with normal global myocardial perfusion, suggesting a likely, nonischemic cardiomyopathy. An echocardiogram is pending for further assessment of left ventricular chamber size and systolic function, as well as valvular function. Past History Past Medical History: arthritis, hypertension Past Surgical History: No surgical history Social history: other (patient is an ex-cigarette smoker. He smoked for 10 years but quit 12 years ago. He admits to moderate alcohol use. He denies illicit drug use.) Family history: hypertension (mother and sisters.), other (no known family history of heart attack.) Medications and Allergies Allergies Allergy/AdvReac Type Severity Reaction Status Date / Time No Known Allergies Allergy Verified 01/12/19 23:10 Home Medications Medication Instructions Recorded Confirmed Last Taken Type amLODIPine [Norvasc] 10 mg PO DAILY 01/13/19 02/03/19 Unknown History Active Meds: Active Medications Acetaminophen (Tylenol) 650 mg PO Q4H PRN PRN Reason: Pain MILD(1-3)/Fever >100.5/CHACON Amlodipine Besylate (Norvasc) 10 mg PO DAILY [facility] Last Admin: 02/04/19 12:01 Dose: 10 mg Documented by: Aspirin (Halfprin Ec) 81 mg PO QDAY [facility] Last Admin: 02/04/19 12:01 Dose: 81 mg Documented by: Enoxaparin Sodium (Lovenox) 40 mg SUB-Q QDAY [facility] Last Admin: 02/04/19 12:01 Dose: 40 mg Documented by: Famotidine (Pepcid) 20 mg PO BID [facility] Last Admin: 02/04/19 12:01 Dose: 20 mg Documented by: Lisinopril (Zestril) 20 mg PO QDAY [facility] Last Admin: 02/04/19 12:01 Dose: 20 mg Documented by: Morphine Sulfate (Morphine) 2 mg IV Q4H PRN PRN Reason: Pain , Severe (7-10) Ondansetron HCl (Zofran) 4 mg IV Q8H PRN PRN Reason: Nausea And Vomiting Oxycodone/Acetaminophen (Percocet 5/325) 1 tab PO Q6H PRN PRN Reason: Pain, Moderate (4-6) Sodium Chloride (Sodium Chloride Flush Syringe 10 Ml) 10 ml IV BID [facility] Last Admin: 02/04/19 12:07 Dose: 10 ml Documented by: Sodium Chloride (Sodium Chloride Flush Syringe 10 Ml) 10 ml IV PRN PRN PRN Reason: LINE FLUSH Last Admin: 02/04/19 12:06 Dose: 10 ml Documented by: Review of Systems Cardiovascular: chest pain, shortness of breath, leg edema Physical Examination Vital Signs Temp Pulse Resp BP Pulse Ox 97.4 F L 36 L 18 159/74 95 02/02/19 22:39 02/02/19 22:39 02/02/19 22:39 02/02/19 22:39 02/02/19 22:39 General appearance: no acute distress HEENT: Positive: PERRL Neck: Positive: neck supple Cardiac: Positive: Reg Rate and Rhythm Lungs: Positive: Decreased Breath Sounds Neuro: Positive: Grossly Intact Abdomen: Positive: Soft Male genitourinary: Positive: deferred Skin: Positive: Clear Extremities: Present: +1 Edema Results 02/02/19 22:52 02/02/19 22:52 EKG interpretations - Telemetry EKG Rhythm: Sinus Bradycardia Assessment and Plan - Patient Problems (1) Shortness of breath Current Visit: Yes Status: Acute Plan to address problem: Patient presents with symptoms of shortness of breath and lower extremity edema, suggests mild decompensated heart failure. We will continue optimal therapy with diuretics, afterload agents, oral antiplatelets and beta blockers as tolerated. An echocardiogram is pending. Ventricular function assessment. (2) Uncontrolled hypertension Current Visit: Yes Status: Acute Plan to address problem: We will implement aggressive blood pressure management.
[2019-02-04] MEDS: ZESTRIL PO SCH (21:04)
[2019-02-04] MEDS: PROCARDIA XL PO SCH (21:04)
--- NOTE | 2019-02-04 23:56 | Treadmill Report ---
THALLIUM STRESS TEST LEFT VENTRICLE: Left ventricle was moderately to severely dilated. The perfusion study demonstrates homogeneous uptake of the tracer in all segments on the stress images. The rest images are suboptimal with low photon count density. Gated analysis demonstrates moderate to severe left ventricular systolic dysfunction with ejection fraction calculated at 38%. CONCLUSION: Evidence of dilated cardiomyopathy with at least [id number] left ventricular systolic dysfunction. The stress perfusion images are normal, suggesting a nonischemic cardiomyopathy. Clinical correlation is recommended. [facility]# [id number] [place]
[2019-02-05 08:56] VITALS: BP 133/84
[2019-02-05] MEDS: ZESTRIL PO SCH (10:29)
[2019-02-05] MEDS: LOVENOX SUB-Q SCH (10:29)
[2019-02-05] MEDS: PROCARDIA XL PO SCH (10:29)
[2019-02-05] MEDS: HALFPRIN EC PO SCH (10:31)
[2019-02-05] MEDS: SODIUM CHLORIDE FLUSH SYRINGE 10 ML IV SCH (10:31)
[2019-02-05] MEDS: PEPCID PO SCH (10:31)
--- NOTE | 2019-02-05 10:53 | Progress Note ---
Assessment and Plan Assessment and plan: --Chest pain, rule out ACS Continue, Oxygen, nitroglycerin, aspirin, morphine Possible stress test in a.m. --Bilateral leg swelling Duplex ultrasound showed no DVT --Sinus bradycardia; chronic physiological Normal TSH and free T4 levels Cardiology evaluation if needed --Hypertension; well controlled Stable --This planning. Case management Patient reports he is Homelessness DVT prophylaxis with Lovenox Follow stress test tomorrow if negative and patient is stable and may be discharged home History Interval history: Patient seen and examined medical records reviewed Patient exhibited no new complaints Vital signs noted Hospitalist Physical - Constitutional Vitals: Temp Pulse Resp BP Pulse Ox 98.0 F 63 16 133/84 95 02/05/19 08:27 02/05/19 10:29 02/05/19 08:27 02/05/19 10:29 02/05/19 08:27 General appearance: Present: no acute distress, well-nourished, obese - EENT Eyes: Present: PERRL, EOM intact - Neck Neck: Present: supple, normal ROM - Respiratory Respiratory effort: normal Respiratory: negative: rales, rhonchi, wheezing - Cardiovascular Rhythm: regular Heart Sounds: Present: S1 & S2 - Extremities Extremities: no ischemia, No edema - Abdominal General gastrointestinal: soft, non-tender, non-distended, normal bowel sounds - Integumentary Integumentary: Present: clear, warm - Psychiatric Psychiatric: appropriate mood/affect, cooperative - Neurologic Neurologic: CNII-XII intact, moves all extremities Results - Labs CBC & Chem 7: 02/02/19 22:52 02/02/19 22:52 Labs: Laboratory Last Values WBC 5.3 K/mm3 (4.5-11.0) 02/02/19 22:52 RBC 4.60 M/mm3 (3.65-5.03) 02/02/19 22:52 Hgb 14.2 gm/dl (11.8-15.2) 02/02/19 22:52 Hct 42.1 % (35.5-45.6) 02/02/19 22:52 MCV 92 fl (84-94) 02/02/19 22:52 MCH 31 pg (28-32) 02/02/19 22:52 MCHC 34 % (32-34) 02/02/19 22:52 RDW 14.2 % (13.2-15.2) 02/02/19 22:52 Plt Count 112 K/mm3 (140-440) L 02/02/19 22:52 [place] % (Auto) Rim Turning Machine Operator 02/02/19 22:52 Add Manual Diff Complete 02/02/19 22:52 Total Counted 100 02/02/19 22:52 Seg Neuts % (Manual) 46.0 % (40.0-70.0) 02/02/19 22:52 1.0 % 02/02/19 22:52 33.0 % (13.4-35.0) 02/02/19 22:52 Reactive Lymphs % (Man) 0 % 02/02/19 22:52 14.0 % (0.0-7.3) H 02/02/19 22:52 6.0 % (0.0-4.3) H 02/02/19 22:52 0 % (0.0-1.8) 02/02/19 22:52 0 % 02/02/19 22:52 0 % 02/02/19 22:52 0 % 02/02/19 22:52 0 % 02/02/19 22:52 Nucleated RBC % Not Reportable 02/02/19 22:52 Seg Neutrophils # Man 2.4 K/mm3 (1.8-7.7) 02/02/19 22:52 Band Neutrophils # 0.1 K/mm3 02/02/19 22:52 1.7 K/mm3 (1.2-5.4) 02/02/19 22:52 Abs React Lymphs (Man) 0.0 K/mm3 02/02/19 22:52 0.7 K/mm3 (0.0-0.8) 02/02/19 22:52 0.3 K/mm3 (0.0-0.4) 02/02/19 22:52 0.0 K/mm3 (0.0-0.1) 02/02/19 22:52 0.0 K/mm3 02/02/19 22:52 0.0 K/mm3 02/02/19 22:52 0.0 K/mm3 02/02/19 22:52 Blast Cells # 0.0 K/mm3 02/02/19 22:52 WBC Morphology Not Reportable 02/02/19 22:52 Hypersegmented Neuts Not Reportable 02/02/19 22:52 Hyposegmented Neuts Not Reportable 02/02/19 22:52 Hypogranular Neuts Not Reportable 02/02/19 22:52 Not Reportable 02/02/19 22:52 Not Reportable 02/02/19 22:52 Not Reportable 02/02/19 22:52 Not Reportable 02/02/19 22:52 Not Reportable 02/02/19 22:52 Not Reportable 02/02/19 22:52 Consistent w auto 02/02/19 22:52 Not Reportable 02/02/19 22:52 Plt Clumps, EDTA Not Reportable 02/02/19 22:52 Not Reportable 02/02/19 22:52 Not Reportable 02/02/19 22:52 Not Reportable 02/02/19 22:52 Plt Morphology Comment Not Reportable 02/02/19 22:52 RBC Morphology Not Reportable 02/02/19 22:52 Dimorphic RBCs Not Reportable 02/02/19 22:52 Not Reportable 02/02/19 22:52 Not Reportable 02/02/19 22:52 Not Reportable 02/02/19 22:52 1+ 02/02/19 22:52 Not Reportable 02/02/19 22:52 Not Reportable 02/02/19 22:52 Not Reportable 02/02/19 22:52 Not Reportable 02/02/19 22:52 Not Reportable 02/02/19 22:52 Not Reportable 02/02/19 22:52 Not Reportable 02/02/19 22:52 Not Reportable 02/02/19 22:52 Not Reportable 02/02/19 22:52 Not Reportable 02/02/19 22:52 Not Reportable 02/02/19 22:52 Not Reportable 02/02/19 22:52 Not Reportable 02/02/19 22:52 Not Reportable 02/02/19 22:52 Not Reportable 02/02/19 22:52 Acanthocytes (Spur) Not Reportable 02/02/19 22:52 Rouleaux Not Reportable 02/02/19 22:52 Not Reportable 02/02/19 22:52 Not Reportable 02/02/19 22:52 Not Reportable 02/02/19 22:52 Not Reportable 02/02/19 22:52 Hem Pathologist Commnt No 02/02/19 22:52 Sodium 140 mmol/L (137-145) 02/02/19 22:52 Potassium 3.9 mmol/L (3.6-5.0) 02/02/19 22:52 Chloride 103.5 mmol/L (98-107) 02/02/19 22:52 Carbon Dioxide 24 mmol/L (22-30) 02/02/19 22:52 16 mmol/L 02/02/19 22:52 BUN 16 mg/dL (9-20) 02/02/19 22:52 0.9 mg/dL (0.8-1.5) 02/02/19 22:52 Estimated GFR > 60 ml/min 02/02/19 22:52 18 % 02/02/19 22:52 Glucose 102 mg/dL (75-100) H 02/02/19 22:52 Calcium 9.0 mg/dL (8.4-10.2) 02/02/19 22:52 < 0.010 ng/mL (0.00-0.029) 02/03/19 03:49 NT-Pro-B Natriuret Pep 339.2 pg/mL (0-900) 02/02/19 22:52 TSH 1.640 mlU/mL (0.270-4.200) 02/03/19 03:49 Free T4 1.04 ng/dL (0.76-1.46) 02/03/19 03:49 Active Medications - Current Medications Current Medications: Generic Name Dose Route Start Last Admin Trade Name Atulq PRN Reason Stop Dose Admin Acetaminophen 650 mg 02/03/19 00:23 Tylenol PO Q4H PRN Pain MILD(1-3)/Fever >100.5/CHACON Aspirin 81 mg 02/03/19 10:00 02/05/19 10:31 Halfprin Ec PO 81 mg QDAY STEVEN Administration Enoxaparin Sodium 40 mg 02/03/19 10:00 02/05/19 10:29 Lovenox SUB-Q 40 mg QDAY STEVEN Administration Famotidine 20 mg 02/03/19 10:00 02/05/19 10:31 Pepcid PO 20 mg BID STEVEN Administration Lisinopril 40 mg 02/04/19 18:45 02/05/19 10:29 Zestril PO Not Given QDAY [facility] Morphine Sulfate 2 mg 02/03/19 00:30 Morphine IV Q4H PRN Pain , Severe (7-10) Nifedipine 60 mg 02/04/19 18:30 02/05/19 10:29 Procardia Xl PO Not Given QDAY [facility] Ondansetron HCl 4 mg 02/03/19 00:23 Zofran IV Q8H PRN Nausea And Vomiting Oxycodone/Acetaminophen 1 tab 02/03/19 00:23 Percocet 5/325 PO Q6H PRN Pain, Moderate (4-6) Sodium Chloride 10 ml 02/03/19 10:00 02/05/19 10:31 Sodium Chloride Flush Syringe 10 Ml IV 10 ml BID STEVEN Administration Sodium Chloride 10 ml 02/03/19 00:23 02/04/19 12:06 Sodium Chloride Flush Syringe 10 Ml IV 10 ml PRN PRN Administration LINE FLUSH Nutrition/Malnutrition Assess - Dietary Evaluation Nutrition/Malnutrition Findings: Nutrition Notes Start: 02/04/19 12:08 Freq: Status: Active Protocol: Document 02/04/19 12:08 AGUILAR (Rec: 02/04/19 12:08 [email or web address] [email or web address]) Nutrition Notes Need for Assessment generated from: surface supply breathing apparatus Initial or Follow up Brief Note Subjective/Other Information Pt screened for skin risk, however, Jacinto score is 22. Will assess upon further consult or LOS.
--- NOTE | 2019-02-17 20:12 | Discharge Summary ---
DISCHARGE AND AMA NOTE. A 59-year-old male patient with significant past medical history of hypertension, osteoarthritis, was admitted through Emergency Room on 02/03/2019 with atypical chest pain. The patient was initially evaluated, admitted to the hospital, symptomatically managed. Blood pressures closely monitored and medications were optimized. The patient was subsequently evaluated by health services manager and underwent stress test, which was negative for ischemia. However, the patient has acute systolic dysfunction with ejection fraction of 38%. Cardiology was planning anti-failure treatment regimen and further evaluation of nonischemic cardiomyopathy; however, the patient refused to continue the treatment, refused to stay in the hospital and left against medical advice. Health caregivers including me explained to the patient risks and consequences of leaving against medical advice without treatment. The patient verbalized understanding, insisted on leaving the hospital, left the necessary papers and left AMA. Please refer to medical records for all the other details. JOB# [id number] [place]
== END 2019-02-05 11:05 | disposition left against medical advice (07) | DRG 313 ==
LOC: ED 22:32 → 4A 02-03 04:08
PROVIDERS: ADMIT Internal Medicine; ATTEND Internal Medicine
DX: R07.89 Other chest pain (principal); R00.1 Bradycardia, unspecified; I10 Essential (primary) hypertension; M19.90 Unspecified osteoarthritis, unspecified site; Z53.21 Procedure and treatment not carried out due to patient leaving prior to being seen by health care provider; Z87.891 Personal history of nicotine dependence; Z82.49 Family history of ischemic heart disease and other diseases of the circulatory system; Z59.0 Homelessness
CPT/HCPCS: 36415; 71045; 78452; 80048; 83880; 84439; 84443; 84484; 85007; 85025; 93005; 93010; 93017; 93970; G0378; A9502; J1650; J2785